=== PATIENT | female | born 1945 | race Caucasian/White ===

== ENCOUNTER 2020-03-23 11:20 | Inpatient (IN) | payer MEDICARE ==
[~2020-03-23] VITALS: Ht 172.7 cm; Wt 59.0 kg
--- NOTE | 2020-03-23 11:30 | NUR ---
GENNAA RA 89 "started having cough/congestion/chills/SOB yesterday" Patient a/ox4, breathing even and unlabored, no sob noted, needs attended, keptc omfortable.
--- NOTE | 2020-03-23 11:54 | NUR ---
covid swab sent to lab.
--- NOTE | 2020-03-23 11:55 | NUR ---
Ballistic Expert at [facility] for blood draw.
[2020-03-23 12:26] LABS: BASOPHILS % (AUTO) 0.6 % (0.0-2.0); EOSINOPHILS % (AUTO) 0.8 % (0.0-6.0); HEMATOCRIT 40 % (33-45); HEMOGLOBIN 13.4 g/dL (11.5-14.8); LYMPHOCYTES # (AUTO) 0.9 /CMM (0.8-4.8); LYMPHOCYTES % (AUTO) 12.9 % (20.0-44.0); MEAN CORPUSCULAR HGB CONC 33 g/dl (31.0-36.0); MEAN CORPUSCULAR VOLUME 87 fL (82-100); MONOCYTES # (AUTO) 0.5 /CMM (0.1-1.30); MONOCYTES % (AUTO) 6.3 % (2.0-12.0); NEUTROPHILS # (AUTO) 5.8 /CMM (1.8-8.9); NEUTROPHILS % (AUTO) 79.4 % (43.0-81.0); PLATELET COUNT (AUTO) 279 /CMM (150-450); RED BLOOD CELL COUNT(AUTO) 4.61 MIL/uL (4.0-5.2); WHITE BLOOD COUNT (AUTO) 7.3 K/uL (4.3-11.0)
[2020-03-23] MEDS ORDERED: MYCO500T PO (12:42)
[2020-03-23] MEDS ORDERED: FOLIC ACID PO (12:42)
[2020-03-23] MEDS ORDERED: ALPR0.5T8 PO (12:42)
[2020-03-23] MEDS ORDERED: TRAZ-182 PO (12:42)
[2020-03-23 13:01] LABS: CALCIUM, SERUM 9.4 mg/dL (8.5-10.1); CARBON DIOXIDE 28 mmol/L (21-32); CHLORIDE 104 mmol/L (98-107); CREATININE 0.8 mg/dL (0.6-1.3); GLUCOSE 82 mg/dL (74-106); POTASSIUM 3.4 mmol/L (3.5-5.1); SODIUM SERUM 142 mmol/L (136-145); UREA NITROGEN, BLOOD 10 mg/dL (7-18)
--- NOTE | 2020-03-23 13:11 | NUR ---
epic paged. awaiting hospitalist call back
--- NOTE | 2020-03-23 13:59 | NUR ---
PATIENT RESTING, NO DISTRESS NOTED.
--- NOTE | 2020-03-23 14:02 | NUR ---
BED 101
--- NOTE | 2020-03-23 14:25 | NUR ---
lab called pt covid result negative (-)
[2020-03-23] MEDS ORDERED: ACETAMINOPHEN 325 MG TABLET PO PRN (16:00)
[2020-03-23] MEDS ORDERED: POTASSIUM CHLORIDE 20 MEQ TAB.PRT.SR PO ONE (16:00)
[2020-03-23] MEDS ORDERED: Z GUARD REMEDY 2 OZ OINT TP PRN (16:00)
[2020-03-23] MEDS ORDERED: ONDANSETRON HCL/PF 4 MG/2 ML VIAL IVP PRN (16:00)
--- NOTE | 2020-03-23 16:01 | NUR ---
REPORT GIVEN TO BRIGHT MENDEZ FOR HARRIET.
[2020-03-23 16:20] VITALS: BP_SYST 140; BP_SYST 160; BP_DIAS 70; BP_DIAS 72; BP_DIAS 75
--- NOTE | 2020-03-23 16:20 | NUR ---
HEAD CONCIERGE NOTES ADMITTED FROM ER, DX SYNCOPE BY DR. PAULO WILSON. AWAKE ALERT ORIENTED X 4, ON ROOM AIR, NOT IN ANY DISTRESS, NO SOB. RESPIRATION UNLABORED. SINUS RHYTHM HR 84 ON MONITOR.DENIES CHEST PAIN OR DISCOMFORT, RIGHT AC G 20 IV ACCESS, FLUSHES WELL, SITE CLEAR. NO SKIN ISSUES, AMBULATORY WITH ASSIST. REGULAR DIET. UNIT ORIENTATION AND USE OF CALL LIGHT DONE. SAFETY MEASURES IN PLACE. BED LOW LOCKED, SR UP X 2, ISOLATION PRECAUTION. WILL CONTINUE TO MONITOR.
--- NOTE | 2020-03-23 16:25 | NUR ---
PATIENT A/OX4, BREATHING EVEN AND UNLABORED, NO SOB NOTED, AMBULATORY WITH STEADY GAIT. NEEDS ATTENDED. ENDORSED TO BRIGHT MENDEZ FOR HARRIET.
[2020-03-23] MEDS: MYCOPHENOLATE MOFETIL 250 MG CAPSULE PO SCH ×2 (16:51→20:33)
[2020-03-23] MEDS: IV NS 0.9% 1,000 ML IV PRN (16:51)
--- NOTE | 2020-03-23 18:08 | NUR ---
RN NOTES DR. PAULO WILSON AT BEDSIDE EARLIER. ALL NEEDS MET AT THIS TIME. PT RESTING. NOT IN ANY DISTRESS. IVF ONGOING. SAFETY MEASURES IN PLACE. CALL LIGHT WITHIN REACH. WILL ENDORSE TO NEXT SHIFT FOR HARRIET.
[2020-03-23 20:00] VITALS: BP 124/48
--- NOTE | 2020-03-23 20:00 | NUR ---
television antenna installer notes Received pts in bed awake alert and verbally responsive, a/ox4 able to make needs known .pts on tele monitor sr on 66 , no sob no distress noted sating 96 % on r/a , pts is ambulatory with minimal assistance . all due meds given as ordered . on ivf of ns at 75cc/hr infusing well with iv heplock on right ac G#20 and left wrist G# 22 intact and patent all due meds given as ordered , all needs attended too call light within reach kept pts clean dry and comfortable . will continue to monitor pts.
--- NOTE | 2020-03-23 20:30 | NUR ---
television cable installer notes cellcept was not administered d/t patient had her medication at bedside , medication wan confiscated from pts explain to her to give it to the pharmacy for safe keeping at that pharmacy will give back to her upon discharged.
[2020-03-23] MEDS: ALPRAZOLAM 0.5 MG TABLET PO PRN (21:48)
[2020-03-23] MEDS: TRAZODONE 50 MG TABLET PO SCH (21:48)
[2020-03-23 22:20] VITALS: BP 148/55
[2020-03-23 22:25] VITALS: BP 151/68
[2020-03-23 22:30] VITALS: BP 146/74
--- NOTE | 2020-03-23 22:30 | NUR ---
SUPERVISOR PRINTING AND STAMPING NOTES COVID RAPID RESULT NEGATIVE , CHARGE NURSE SAFIA MADE AWARE AND SO SUPPLY TECHNICIAN NILESH . SPOKE TO MD SENIOR TELECOMMUNICATIONS SPECIALIST ENA MADE AWARE OF NEGATIVE RESULT WITH ORDER TO TRANSFER PTS TO CLEAN UNIT .NON COVID UNIT.PTS WILL BE TRANSFER TO ROOM 317-2 PER NILESH SUPPLY TECHNICIAN.
--- NOTE | 2020-03-23 23:00 | NUR ---
CUSTODIAL SERVICES MANAGER NOTES REPORT AND TRANSFER OF CARE GIVEN TO VANESSA YOUSSEF , TRANSFER PTS TO [address] [facility] 117-2 ,TRANSPORT PTS VIA WHEELCHAIR IN STABLE CONDITION.BELONGING ENDORSED TO DOMONIQUE.
--- NOTE | 2020-03-23 23:09 | NUR ---
PATIENT CAME FROM [facility] BY WHEELCHAIR, AWAKE A/O X4. NO S/S OF DISTRESS NOTED. NO COMPLAIN OF PAIN. CALL LIGHT WITHIN REACH. BED IN LOWEST AND LOCKED POSITION. INSTRUCTED PATIENT TO CALL FOR ASSISTANCE WHEN OOB,PATIENT VERBALIZED UNDERSTANDING. PATIENT'S OWN MEDS-CELLCEPT BOTTLE PLACED IN THE PATIENT'S BIN AND WILL ENDORSED TOMORROW TO THE NEXT SHIFT RN TO BE GIVEN TO THE PHARMACY TOMORROW AM TO KEEP THE HOME MEDS WHILE PATIENT IS STILL IN THE HOSPITAL.
[2020-03-24] VITALS (8 sets, daily range): BP systolic 109–134; BP diastolic 46–71
[2020-03-24] MEDS: IV NS 0.9% 1,000 ML IV PRN (05:26)
[2020-03-24 06:06] LABS: BASOPHILS % (AUTO) 0.4 % (0.0-2.0); EOSINOPHILS % (AUTO) 2.1 % (0.0-6.0); HEMATOCRIT 39 % (33-45); HEMOGLOBIN 13.1 g/dL (11.5-14.8); LYMPHOCYTES # (AUTO) 1.1 /CMM (0.8-4.8); MEAN CORPUSCULAR HGB CONC 34 g/dl (31.0-36.0); MEAN CORPUSCULAR VOLUME 88 fL (82-100); MONOCYTES # (AUTO) 0.6 /CMM (0.1-1.30); MONOCYTES % (AUTO) 9.3 % (2.0-12.0); NEUTROPHILS # (AUTO) 4.8 /CMM (1.8-8.9); NEUTROPHILS % (AUTO) 72.2 % (43.0-81.0); PLATELET COUNT (AUTO) 238 /CMM (150-450); RED BLOOD CELL COUNT(AUTO) 4.45 MIL/uL (4.0-5.2); WHITE BLOOD COUNT (AUTO) 6.7 K/uL (4.3-11.0)
[2020-03-24 06:32] LABS: ALBUMIN 3.4 g/dL (3.4-5.0); BILIRUBIN,TOTAL 0.3 mg/dL (0.2-1.0); CALCIUM, SERUM 9.2 mg/dL (8.5-10.1); CREATININE 0.6 mg/dL (0.6-1.3); MAGNESIUM 2.3 mg/dL (1.8-2.4); PHOSPHORUS 3.2 mg/dL (2.5-4.9); TOTAL PROTEIN, SERUM 6.9 g/dL (6.4-8.2)
--- NOTE | 2020-03-24 06:45 | NUR ---
CONVALESCENT SITTER CLOSING NOTES: PATIENT IN BED, AWAKE, A/O X4. NO S/S OF DISTRESS NOTED. NO COMPLAIN OF PAIN. PATIENT WENT TO THE BATHROOM WITH STAND-BY ASSIST ONLY, NO DIZZINESS NOTED. PATIENT IS STEADY. CALL LIGHT WITHIN REACH, BED IN LOWEST AND LOCKED POSITION. PATIENT RESTED THROUGHOUT THE NIGHT.
[2020-03-24 06:51] LABS: THYROID STIMULATING HORMONE 1.801 uIU/mL (0.358-3.74)
--- NOTE | 2020-03-24 07:45 | NUR ---
LEAD DESIGNER OPENING NOTES BEDSIDE ENDORSEMENT DONE. PATIENT IS IN BED AWAKE AND VERBALLY RESPONSIVE. A/O X4, ABLE TO MAKE NEEDS KNOWN. BREATHING EVEN AND UNLABORED, TOLERATING ROOM AIR. ON TELE MONITORING, READING OF SR W/ HR IN THE 70'S, NO CARDIAC DISTRESS. IV LINE ON RAC #20 AND LEFT WRIST #22 INTACT AND PATENT. ENDORSED BY PREVIOUS SHIFT RN ABOUT PATIENT'S CELLCEPT MEDICATION; CHART WAS CHECKED AND THE SLIP HAS BEEN SIGNED ALREADY ON 03/23/2020. REMINDED TO USE CALL LIGHT FOR ASSISTANCE WHEN AMBULATING. SAFETY PRECAUTIONS IN PLACE: BED LOCKED AND ON LOWEST POSITION, SR UP X2, CALL LIGHT W/IN REACH. WILL CONTINUE TO MONITOR.
[2020-03-24] MEDS: FOLIC ACID 1 MG TABLET PO SCH (08:47)
[2020-03-24] MEDS: MYCOPHENOLATE MOFETIL 250 MG CAPSULE PO SCH ×4 (08:49→21:00)
--- NOTE | 2020-03-24 10:38 | NUR ---
RN NOTES NEURO CONSULT W/ DR. RHODES DONE TODAY VIA [facility]. W/ ORDER FOR CT OF HEAD W/O CONTRAST AND EEG. EXPLAINED PROCEDURE, PATIENT VERBALIZED UNDERSTANDING, AND CONSENT FORM SIGNED BY PATIENT.
--- NOTE | 2020-03-24 11:20 | NUR ---
RN NOTES PATIENT WAS PICKED UP BY RADIOLOGY FOR CT SCAN PROCEDURE VIA WHEELCHAIR, ACCOMPANIED BY 1 MANAGER OF OPERATIONS.
--- NOTE | 2020-03-24 11:48 | NUR ---
RN NOTES PATIENT RETURNED FROM CT SCAN PROCEDURE.
--- NOTE | 2020-03-24 14:57 | NUR ---
RN NOTES PATIENT W/ STANDING ORDER FOR EEG FROM DR. RHODES. PATIENT WAS SEEN BY DR. WILSON AND CHANGED ORDER TO STAT. RECEIVED CALL FROM [facility], AND WAS INFORMED THAT STAT EEG WON'T BE DONE UNTIL 1800 TODAY OR TOMORROW [address]. DR. WILSON MADE AWARE. PATIENT MADE AWARE.
--- NOTE | 2020-03-24 18:55 | NUR ---
SUPERVISOR WET END CLOSING NOTES PATIENT IS IN BED AWAKE AND VERBALLY RESPONSIVE. A/O X4, ABLE TO MAKE NEEDS KNOWN. BREATHING EVEN AND UNLABORED, TOLERATING ROOM AIR. ON TELE MONITORING, READING OF SR W/ HR IN LOW 70'S, NO CARDIAC DISTRESS. IV LINE ON RAC #20 AND LEFT WRIST #22 INTACT AND PATENT. CELLCEPT GIVEN TO PHARMACY TODAY. CURRENTLY AWAITING EEG PROCEDURE; PATIENT AWARE. SAFETY PRECAUTIONS MAINTAINED: BED LOCKED AND ON LOWEST POSITION, SR UP X2, CALL LIGHT W/IN REACH. WILL ENDORSE TO RESEARCH PHARMACIST RN FOR HARRIET.
--- NOTE | 2020-03-24 19:00 | NUR ---
sports management intern opening notes received patient in bed awake alert and oriented x4, respirations even and unlabored with equal rise and fall of chest,denies any pain or discomfort at this time, left wrist #22 g sl intact and patent, no redness, no infiltration present, iv site to right ac noted leaking will remove. oriented to staff and call light and kept within reach, safety precautions rendered low bed and locked, all needs attended at this time, will continue to monitor and attend to needs.
--- NOTE | 2020-03-24 19:05 | NUR ---
on front desk monitor sr 80
--- NOTE | 2020-03-24 19:42 | NUR ---
rn notes patient complained of headache requested for tylenol. prn tylenol given. vs wnl. will continue to monitor.
--- NOTE | 2020-03-24 20:30 | NUR ---
rn notes right ac iv site removed noted leaking. site cleansed and covered with azar abernathy
[2020-03-24] MEDS: TRAZODONE 50 MG TABLET PO SCH (21:02)
[2020-03-24] MEDS: ALPRAZOLAM 0.5 MG TABLET PO PRN (21:02)
--- NOTE | 2020-03-24 21:06 | NUR ---
rn notes patient states she only takes cellcept 2 hours after meals. refused cellcept. patient is alert and oriented x4.
--- NOTE | 2020-03-24 21:11 | NUR ---
rn notes patient requested prn xanax as ordered states "she cannot sleep without it and wound like to take it now to get some rest". prn xanax given as ordered.will continue to monitor.
[2020-03-25] VITALS: BP 131/58
[2020-03-25 04:00] VITALS: BP_SYST 108; BP_SYST 131; BP_DIAS 58; BP_DIAS 63
--- NOTE | 2020-03-25 06:44 | NUR ---
deputy commonwealth's attorney closing notes patient in bed awake alert and oriented x4, respirations even and unlabored with equal rise and fall of chest,denies any pain or discomfort at this time, left wrist #22 g sl intact and patent, no redness, no infiltration present, ivf running as ordered, patient slept most of the night ,fluids encouraged, call light kept within reach, safety precautions rendered low bed and locked, all needs attended at this time, will continue to monitor and attend to needs and endorse to next shift.
--- NOTE | 2020-03-25 06:46 | NUR ---
telemetry monitor sr 79
--- NOTE | 2020-03-25 07:15 | NUR ---
PORTUGUESE TUTOR OPENING NOTES BEDSIDE ENDORSEMENT DONE. PATIENT IS IN SLEEPING BUT ABLE TO BE AWAKENED. A/O X4, ABLE TO MAKE NEEDS KNOWN. BREATHING EVEN AND UNLABORED, TOLERATING ROOM AIR. TELE MONITORING, READING OF SR W/ HR IN THE LOW 70'S, NO CARDIAC DISTRESS. IV LINE ON RAC #20 AND LEFT WRIST #22 INTACT AND PATENT. SAFETY PRECAUTIONS IN PLACE: BED LOCKED AND ON LOWEST POSITION, SR UP X2, CALL LIGHT W/IN REACH. WILL CONTINUE TO MONITOR.
[2020-03-25 08:00] VITALS: BP 123/54
[2020-03-25] MEDS: MYCOPHENOLATE MOFETIL 250 MG CAPSULE PO SCH ×3 (08:34→16:32)
[2020-03-25] MEDS: FOLIC ACID 1 MG TABLET PO SCH (08:34)
[2020-03-25 12:00] VITALS: BP 115/58
--- NOTE | 2020-03-25 17:28 | NUR ---
TARGET TRIMMER NOTES PATIENT WAS SEEN BY DR. WILSON TODAY, S/P EEG, W/ ORDER FOR DISCHARGE TO HOME. PATIENT IS AWAKE AND VERBALLY RESPONSIVE, A/O X4. DISCHARGE INSTRUCTIONS AND EDUCATION GIVEN TO PATIENT, VERBALIZED UNDERSTANDING. DISCHARGE FORM SIGNED BY PATIENT. BELONGINGS ACCOUNTED FOR AND FORM SIGNED. NO SKIN ISSUES NOTED. VS TAKEN, STABLE. IV LINE AND NAME ARMBAND REMOVED. PATIENT IS AMBULATORY AND WAS ACCOMPANIED TO THE LOBBY BY LORETA PATTEN; PICKED UP BY PATIENT'S BROTHER BARBARA. CHARGE NURSE AND MD AWARE OF DISCHARGE.
== END 2020-03-25 17:25 | disposition home or self-care (01) | DRG 74 ==
LOC: ER 11:25 → TELE1 14:08 → TELE 23:13
PROVIDERS: ADMIT Nurse Practitioner Acute Care; ATTEND Nurse Practitioner Acute Care
DX: G90.8 Other disorders of autonomic nervous system (principal); E06.3 Autoimmune thyroiditis; E87.6 Hypokalemia; Z79.899 Other long term (current) drug therapy; L12.1 Cicatricial pemphigoid
CPT/HCPCS: 36415; 70450-TC; 71045-TC; 80048-TC; 80053-TC; 80061-TC; 83735-TC; 84100-TC; 84443-TC; 84484-TC; 85025-TC; 87081-TC; 93307-TC; 93880-TC; 95819-TC; G0378; J7030; J7517

== ENCOUNTER 2021-12-02 08:19 | Emergency (ER) | payer MEDICARE ==
[~2021-12-02] VITALS: Ht 172.7 cm; Wt 53.1 kg
[~2021-12-02 08:19] MED LIST: ALPR0.5T8 PO; FOLIC ACID PO; MYCO500T PO; TRAZ-182 PO
--- NOTE | 2021-12-02 08:20 | NUR ---
RECIVED PT 76 YRS FEMALE WALKING IN FROM HOME C/O CHEST PAIN HX FALL down on 11/29/21 fx fraction rips awake alert diness sob or distress
--- NOTE | 2021-12-02 08:30 | NUR ---
SEEN BY DR. MURCIA
--- NOTE | 2021-12-02 08:40 | NUR ---
D/C instraction given to pt fully and verblized understood d/c home stable vs
[2021-12-02 08:46] VITALS: BP 147/65
== END 2021-12-02 09:15 | disposition home or self-care (01) ==
LOC: ER 08:25
DX: S22.41XA Multiple fractures of ribs, right side, initial encounter for closed fracture (principal); Z98.890 Other specified postprocedural states; Z60.2 Problems related to living alone; Z79.899 Other long term (current) drug therapy; W19.XXXA Unspecified fall, initial encounter; Y93.K1 Activity, walking an animal; Y92.89 Other specified places as the place of occurrence of the external cause; Y99.8 Other external cause status

== ENCOUNTER 2023-06-09 09:30 | Emergency (ER) | payer MEDICARE ==
[~2023-06-09] VITALS: Ht 172.7 cm; Wt 54.4 kg
[2023-06-09] MEDS: IV NS 0.9% 1,000 ML BAG IV ONE (10:30)
[2023-06-09 10:36] LABS: CALCIUM, SERUM 9.5 mg/dL (8.5-10.1); CREATININE 0.7 mg/dL (0.6-1.3); POTASSIUM 3.2 mmol/L (3.5-5.1)
[2023-06-09 10:37] LABS: BASOPHILS % (AUTO) 0.5 % (0.0-2.0); EOSINOPHILS % (AUTO) 0.2 % (0.0-6.0); HEMATOCRIT 43 % (33-45); HEMOGLOBIN 14.1 g/dL (11.5-14.8); LYMPHOCYTES # (AUTO) 0.9 K/uL (0.8-4.8); MEAN CORPUSCULAR HEMOGLOBIN 28 PG (26.0-33.0); MEAN CORPUSCULAR HGB CONC 33 g/dl (31.0-36.0); MEAN CORPUSCULAR VOLUME 86 fL (82-100); MONOCYTES # (AUTO) 1.1 K/uL (0.1-1.30); MONOCYTES % (AUTO) 11.1 % (2.0-12.0); NEUTROPHILS % (AUTO) 79.2 % (43.0-81.0); PLATELET COUNT (AUTO) 329 K/uL (150-450); RED BLOOD CELL COUNT(AUTO) 4.97 MIL/uL (4.0-5.2); RED CELL DISTRIBUTION WIDTH 14.2 % (11.5-15.0); WHITE BLOOD COUNT (AUTO) 10.2 K/uL (4.3-11.0)
[2023-06-09] MEDS: KETOROLAC TROMETHAMINE 15 MG/ML VIAL IV ONE (10:40)
[2023-06-09] MEDS ORDERED: KETOROLAC TROMETHAMINE 15 MG/ML VIAL ONE (10:40)
[2023-06-09 13:03] VITALS: BP 144/81; TEMP 98.2; O2SAT 98
== END 2023-06-09 13:01 | disposition home or self-care (01) ==
LOC: ER 09:33
DX: J06.9 Acute upper respiratory infection, unspecified (principal); Z85.3 Personal history of malignant neoplasm of breast; Z60.2 Problems related to living alone; Z20.822 Contact with and (suspected) exposure to COVID-19
CPT/HCPCS: 99285; 96374; 71045; 96361; 87426; 93005; 87804 ×2; 85025; 80048; 36415; J7030; J1885

== ENCOUNTER 2024-07-07 11:35 | Emergency (ER) | payer MEDICARE ==
[~2024-07-07] VITALS: Ht 172.7 cm; Wt 55.3 kg
[2024-07-07] MEDS ORDERED: KETOROLAC TROMETHAMINE INJ 30 MG/ML VIAL ONE (12:08)
[2024-07-07] MEDS: KETOROLAC TROMETHAMINE INJ 30 MG/ML VIAL IM ONE (12:13)
[2024-07-07] MEDS ORDERED: VALA10002 PO (12:46)
[2024-07-07] MEDS ORDERED: KETO10TA2 PO (12:46)
[2024-07-07 13:02] VITALS: BP 115/80; TEMP 98.4; O2SAT 99
== END 2024-07-07 13:03 | disposition home or self-care (01) ==
LOC: ER 11:42
DX: R07.89 Other chest pain (principal); E06.3 Autoimmune thyroiditis; Z85.3 Personal history of malignant neoplasm of breast; Z90.13 Acquired absence of bilateral breasts and nipples; Z96.651 Presence of right artificial knee joint
CPT/HCPCS: 99283; 71045; 96372; J1885